=== PATIENT | female | born 1975 | race Hispanic/Latino ===

== ENCOUNTER → 2019-01-10 | Outpatient (CLI) | payer BC ==
--- NOTE | 2019-01-11 09:16 | Diagnostic Imaging Report ---
ANKLE 3 + VIEWS RIGHT - 3 views HISTORY: Pain COMPARISON: None available. FINDINGS: Bones: No acute displaced fracture. Osseous alignment is within normal limits. Joints: The joint spaces are well-maintained. Soft tissues: The soft tissues appear unremarkable. IMPRESSION: No acute fracture or dislocation of the right ankle. Signed by: Dr. Antonino Humphreys MD on 01/11/2019 9:12 AM
--- NOTE | 2019-01-11 09:17 | Diagnostic Imaging Report ---
FOOT RIGHT COMPLETE - 3 views HISTORY: Pain COMPARISON: None available. FINDINGS: Bones: No acute displaced fracture. Osseous alignment is within normal limits. Joints: The joint spaces are well-maintained. Soft tissues: The soft tissues appear unremarkable. IMPRESSION: No acute fracture or dislocation of the right foot. Signed by: Dr. Antonino Humphreys MD on 01/11/2019 9:14 AM
== END ==
LOC: RAD 16:31
PROVIDERS: ATTEND Family Medicine
DX: M25.571 Pain in right ankle and joints of right foot (principal)

== ENCOUNTER → 2019-02-11 | Outpatient (CLI) | payer BC ==
--- NOTE | 2019-02-11 09:51 | Diagnostic Imaging Report ---
TECHNIQUE: Magnetic resonance imaging of the RIGHT ANKLE was performed WITHOUT injected contrast. HISTORY: PAIN SWELLING , medial ankle COMPARISON: Right ankle radiographs January 10, 2019 FINDINGS: LIGAMENTS: Medial Complex: The posterior/deep fibers are intact. Thickening and increased intrasubstance signal of the anterior/superficial fibers. Mild thickening and increased intrasubstance signal of the adjacent spring ligament. Lateral Complex: Intact, including the tibiofibular ligaments. TENDONS: Medial: Intact, small volume of fluid adjacent to the tendon proximal to the medial malleolus. Lateral: Intact Anterior: Intact Achilles: Minimal thickening and increased intrasubstance signal of the distal, lateral tendon. BONES: No focal or infiltrative bone marrow replacing abnormality. No acute fracture or osteonecrosis. A chronic appearing 3 mm ossific fragment in the region of the anterior/superficial deltoid fibers. JOINTS: Cartilage: No focal defect involving the tibiotalar joint. Other: Trace tibiotalar and talonavicular effusions. SOFT TISSUES: Mild medial edema. IMPRESSION: 1. Evolving high-grade sprains versus low-grade partial tears of the anterior/superficial fibers of the deltoid ligament and to a lesser degree the adjacent spring ligament, likely late subacute to chronic. Chronic appearing associated 3 mm avulsion fragment. 2. Mild posterior tibial tenosynovitis. 3. Minimal Achilles tendinosis. Signed by: Dr. Kofi Brennan D.O., M.M.M. on 02/11/2019 9:48 AM
== END ==
LOC: MRI 06:45
PROVIDERS: ATTEND Podiatrist Foot & Ankle Surgery
DX: M25.571 Pain in right ankle and joints of right foot (principal); M25.471 Effusion, right ankle; M85.671 Other cyst of bone, right ankle and foot; M65.871 Other synovitis and tenosynovitis, right ankle and foot; M76.61 Achilles tendinitis, right leg

== ENCOUNTER → 2021-05-31 | Outpatient (CLI) | payer BC | LOC: RAD 12:43 | PROVIDERS: ATTEND Family Medicine | DX: M25.571 Pain in right ankle and joints of right foot (principal) ==